=== PATIENT | male | born 1960 | race Caucasian/White ===

== ENCOUNTER 2018-06-05 16:39 | Emergency (ER) | payer OTHER ==
[~2018-06-05] VITALS: Ht 175.3 cm; Wt 117.5 kg
[2018-06-05] MEDS ORDERED: HTN PO (17:05)
[2018-06-05] MEDS ORDERED: ASPIRIN325 PO (17:06)
[2018-06-05] MEDS ORDERED: PERMETHRIN1 GM TOP (18:08)
[2018-06-05 18:31] VITALS: BP 153/116
== END 2018-06-05 18:32 | disposition home or self-care (01) ==
LOC: EDSEX 16:39 → M.ERS 16:39
DX: R21 Rash and other nonspecific skin eruption (principal); I10 Essential (primary) hypertension; F17.210 Nicotine dependence, cigarettes, uncomplicated

== ENCOUNTER 2021-08-20 09:27 | Inpatient (IN) | payer OTHER ==
[~2021-08-20] VITALS: Ht 175.3 cm; Wt 124.7 kg
[~2021-08-20 09:27] MED LIST: ASPIRIN325 PO; HTN PO; PERMETHRIN1 GM TOP
[2021-08-20 09:40] VITALS: BP 190/139
[2021-08-20 10:08] LABS: ABSOLUTE BASOPHILS 0.1 thou/uL (0.0-0.2); ABSOLUTE MONOCYTES 0.6 thou/uL (0.0-1.2); ABSOLUTE NEUTROPHILS 5.8 thou/uL (1.6-8.1); BASOPHILS 1.2 %; EOSINOPHILS 0.5 %; HEMOGLOBIN 14.3 gm/dL (14.0-18.0); LYMPHOCYTES 13.1 %; MCH 27.8 pg (26.0-34.0); MCHC 32.5 g/dL (28.0-37.0); MCV 85.5 fL (80.0-100.0); MONOCYTES 8.4 %; MPV 9.3 fl. (7.2-11.1); NUCLEATED RBCS 0 /100WBC; PLATELET COUNT* 322 thou/uL (150-400); POLYS 76.8 %; RBC 5.15 mil/uL (4.50-6.00); WBC 7.6 thou/uL (4.0-11.0)
[2021-08-20 10:30] LABS: CREATININE 1.7 mg/dL (0.6-1.3); POTASSIUM 4.1 mmol/L (3.5-5.1)
[2021-08-20 10:41] LABS: ALBUMIN 3.3 g/dL (3.4-5.0); TOTAL BILIRUBIN 0.6 mg/dL (<0.1-1.0); TOTAL PROTEIN 7.6 g/dL (6.4-8.2)
--- NOTE | 2021-08-20 15:56 | 2DMMODE ---
[place] [address] 2 D/M-MODE ECHOCARDIOGRAM Name: ESTRELLITA SHAW Room: [address] IN [place].#: [id number] Admission: 08/20/21 Attend Phys: Milena Powell, Discharge: Date of : 64 Date of Service: 08/20/21 1556 Report #: [id number] THIS REPORT FOR: cc: FAM - No family physician/PCP FAM - No family physician/PCP Roldan Siegel MD [facility] ~ APPROVED REPORT Study performed: 08/20/2021 14:59:06 EXAM: Comprehensive 2D, Doppler, and color-flow Echocardiogram Patient Location: In-Patient Room #: er Status: routine BSA: 2.37 HR: 114 bpm BP: 180/124 mmHg Rhythm: NSR Other Information Study Quality: Good Indications Congestive Heart Failure 2D Dimensions IVSd: 13.24 (7-11mm) LVOT Diam: 25.70 (18-24mm) LVDd: 60.95 mm PWd: 13.15 (7-11mm) Ascending Ao: 34.76 (22-36mm) LVDs: 56.45 (25-40mm) Aortic Root: 38.25 mm Volumes Left Atrial Volume (Systole) LA ESV Index: 42.40 mL/m2 Aortic Valve AoV Peak Romario.: 0.82 m/s AO Peak Gr.: 2.69 mmHg LVOT Max P.01 mmHg AO Mean Gr.: 1.71 mmHg LVOT Mean P.06 mmHg LVOT Max V: 0.71 m/s AO V2 VTI: 12.04 cm LVOT Mean V: 0.48 m/s MAMADOU (VTI): 4.08 cm2 LVOT V1 VTI: 9.45 [place] [address] 2 D/M-MODE ECHOCARDIOGRAM Name: ESTRELLITA SHAW Room: [address] IN [facility]#: [id number] Admission: 08/20/21 Attend Phys: Milena Powell, Discharge: Date of : 64 Date of Service: 08/20/21 1556 Report #: [id number] TDI Lateral E' Romario.: 0.12 m/s Pulmonary Valve PV Peak Romario.: 0.61 m/s PV Peak Gr.: 1.46 mmHg Tricuspid Valve RAP Estimate: 5.00 mmHg TR Peak Gr.: 37.93 mmHg RVSP: 42.00 mmHg PA Pressure: 42.00 mmHg Left Ventricle Left ventricle is moderately dilated. There is severe global hypokinesis of the left ventricle. There is normal left ventricular wall thickness. Left ventricular systolic function is severely decreased. LVEF is 20-25%. This study is not technically sufficient to allow evaluation of the LV diastolic function. Right Ventricle The right ventricle is normal size. The right ventricular systolic function is normal. Atria Left atrium is moderately dilated. The right atrium size is normal. Aortic Valve Mild aortic valve sclerosis. Trace aortic regurgitation. There is no aortic valvular stenosis. Mitral Valve The mitral valve is normal in structure. Trace mitral regurgitation. No evidence of mitral valve stenosis. Tricuspid Valve The tricuspid valve is normal in structure. Mild tricuspid regurgitation. Moderate pulmonary hypertension. Pulmonic Valve The pulmonary valve is normal in structure. Trace pulmonic regurgitation. Great Vessels The aortic root is normal in size. IVC is normal in size and collapses >50% [place] [address] 2 D/M-MODE ECHOCARDIOGRAM Name: ESTRELLITA SHAW Room: [address] IN [facility].#: [id number] Admission: 08/20/21 Attend Phys: Milena Powell, Discharge: Date of : 64 Date of Service: 08/20/21 1556 Report #: [id number] Pericardium There is no pericardial effusion. Left pleural effusion is noted. <Conclusion> Left ventricle is moderately dilated. There is normal left ventricular wall thickness. Left ventricular systolic function is severely decreased. LVEF is 20-25%. The right ventricle is normal size. Left atrium is moderately dilated. The right atrium size is normal. Mild aortic valve sclerosis. Trace aortic regurgitation. There is no aortic valvular stenosis. The mitral valve is normal in structure. Trace mitral regurgitation. The tricuspid valve is normal in structure. Mild tricuspid regurgitation. Moderate pulmonary hypertension. IVC is normal in size and collapses >50% with inspiration. There is no pericardial effusion. There is severe global hypokinesis of the left ventricle. Left pleural effusion is noted. <ELECTRONICALLY SIGNED> By: Roldan Siegel MD, [facility] 08/20/21 1556 1556 1556 Roldan Siegel MD, FACC /INF
[2021-08-20 16:45] LABS: CHOLESTEROL 189 mg/dL (<200); HDL CHOLESTEROL 28 mg/dL (>40); LDL CHOLESTEROL 133 mg/dL (<100); TC:HDL 6.8 Ratio (Not establshd); TRIGLYCERIDE 140 mg/dL (<150); VLDL 28 mg/dL (<40)
[2021-08-20 16:47] VITALS: BP 185/132
[2021-08-20 16:48] LABS: SERUM ASSESSMENT Clear
[2021-08-20 18:05] VITALS: BP 169/11
[2021-08-20 20:00] VITALS: BP 155/117
[2021-08-21] VITALS (7 sets, daily range): BP systolic 108–172; BP diastolic 76–109
[2021-08-21 08:15] LABS: HEMATOCRIT 43.1 % (42.0-52.0); HEMOGLOBIN 14.1 gm/dL (14.0-18.0); MCH 27.6 pg (26.0-34.0); MCHC 32.7 g/dL (28.0-37.0); MCV 84.4 fL (80.0-100.0); MPV 9.4 fl. (7.2-11.1); RBC 5.1 mil/uL (4.50-6.00); RDW-CV 15.4 % (10.5-14.5); WBC 8.2 thou/uL (4.0-11.0)
[2021-08-21 08:27] LABS: ALBUMIN 3.2 g/dL (3.4-5.0); CALCIUM 8.9 mg/dL (8.5-10.1); CREATININE 1.5 mg/dL (0.6-1.3); MAGNESIUM 2.1 mg/dL (1.8-2.4); POTASSIUM 4.1 mmol/L (3.5-5.1); TOTAL BILIRUBIN 0.6 mg/dL (<0.1-1.0); TOTAL PROTEIN 6.9 g/dL (6.4-8.2)
--- NOTE | 2021-08-21 15:16 | EKG ---
[place] [address] ELECTROCARDIOGRAM REPORT Name: ESTRELLITA SHAW Room: [place] [address] ADM IN ..#: [id number] Admission: 08/20/21 Attend Phys: Milena Powell, Discharge: Date of : 64 Date of Service: 08/20/21 0958 Report #: [id number] THIS REPORT FOR: //name// [facility] ED Test Date: 2021-08-20 Test Time: 09:58:24 Pat Name: ESTRELLITA SHAW Department: Room: [facility] Gender: M X Ray Nurse: FILOMENA : 1960 Requested By: Waylon Mckeon Order Number: [id number] MD: John Alvarez Measurements Intervals [place] Rate: 106 P: 27 [place]: 149 QRS: -6 QRSD: 112 T: 117 QT: 341 QTc: 453 Interpretive Statements Sinus tachycardia Biatrial enlargement inferior infarct, old Abnormal lateral Q waves Baseline wander in lead(s) V2 No previous ECG available for comparison Electronically Signed On 08-21-2021 15:16:44 MENTAL RETARDATION AIDE by John Alvarez [email or web address] <ELECTRONICALLY SIGNED> By: John Alvarez MD, FACC 08/21/21 1516 0958 0958 John Alvarez MD, FAC /EPI
[2021-08-22] VITALS: BP 136/90
[2021-08-22 04:00] VITALS: BP 129/89
[2021-08-22 08:00] VITALS: BP 134/93
[2021-08-22 10:11] LABS: HEMATOCRIT 44.9 % (42.0-52.0); HEMOGLOBIN 14.2 gm/dL (14.0-18.0); MCHC 31.7 g/dL (28.0-37.0); MCV 85.3 fL (80.0-100.0); MPV 9.4 fl. (7.2-11.1); RBC 5.27 mil/uL (4.50-6.00); RDW-CV 15.3 % (10.5-14.5); WBC 11.4 thou/uL (4.0-11.0)
[2021-08-22 10:21] LABS: CALCIUM 9.2 mg/dL (8.5-10.1); CREATININE 1.8 mg/dL (0.6-1.3); MAGNESIUM 2.2 mg/dL (1.8-2.4); POTASSIUM 4.1 mmol/L (3.5-5.1)
[2021-08-22 12:00] VITALS: BP 134/96
[2021-08-22 12:01] LABS: HEMATOCRIT 40.2 % (42.0-52.0); HEMOGLOBIN 12.9 gm/dL (14.0-18.0)
[2021-08-22 16:00] VITALS: BP 124/93
[2021-08-22 20:00] VITALS: BP 139/94
[2021-08-23] VITALS: BP 142/889
[2021-08-23 04:00] VITALS: BP 151/104
[2021-08-23 05:41] LABS: HEMATOCRIT 43.8 % (42.0-52.0); HEMOGLOBIN 14.1 gm/dL (14.0-18.0); MCH 27.2 pg (26.0-34.0); MCHC 32.1 g/dL (28.0-37.0); MCV 84.7 fL (80.0-100.0); MPV 9.2 fl. (7.2-11.1); RBC 5.17 mil/uL (4.50-6.00); RDW-CV 15.2 % (10.5-14.5); WBC 10.9 thou/uL (4.0-11.0)
[2021-08-23 06:09] LABS: ALBUMIN 3.1 g/dL (3.4-5.0); CALCIUM 8.7 mg/dL (8.5-10.1); CREATININE 1.9 mg/dL (0.6-1.3); MAGNESIUM 2.4 mg/dL (1.8-2.4); POTASSIUM 4.6 mmol/L (3.5-5.1); TOTAL BILIRUBIN 0.3 mg/dL (<0.1-1.0); TOTAL PROTEIN 6.7 g/dL (6.4-8.2)
[2021-08-23 09:00] VITALS: BP 138/100
[2021-08-23 09:24] LABS: APTT 25.4 Seconds (25.0-31.3); INR 1.1; PROTIME 11.5 Seconds (9.20-11.50)
[2021-08-23 11:48] VITALS: BP 146/102
[2021-08-23 15:45] LABS: BF RBC 6232 /mm3; TOTAL CELL COUNT 2139 /mm3
[2021-08-23 15:53] LABS: CLARITY CLOUDY; TOTAL VOLUME 1560 ml
[2021-08-23 16:08] LABS: BF LYMPHOCYTES 95 %; BF MONOCYTES 2 %; BF POLYS 3 %; BF TISSUE 5 /100 WBC
[2021-08-23 16:14] LABS: SOURCE PLEURAL FLUID
[2021-08-23 16:49] VITALS: BP 144/83
[2021-08-23 20:00] VITALS: BP 146/81
[2021-08-24 02:22] VITALS: BP 120/88
[2021-08-24 04:30] LABS: HEMATOCRIT 44.1 % (42.0-52.0); HEMOGLOBIN 14.2 gm/dL (14.0-18.0); MCH 27.3 pg (26.0-34.0); MCHC 32.2 g/dL (28.0-37.0); MCV 84.8 fL (80.0-100.0); MPV 9.2 fl. (7.2-11.1); RBC 5.21 mil/uL (4.50-6.00); RDW-CV 15.2 % (10.5-14.5); WBC 10.9 thou/uL (4.0-11.0)
[2021-08-24 05:26] LABS: ALBUMIN 2.8 g/dL (3.4-5.0); CALCIUM 8.6 mg/dL (8.5-10.1); MAGNESIUM 2.2 mg/dL (1.8-2.4); POTASSIUM 4.6 mmol/L (3.5-5.1); TOTAL BILIRUBIN 0.3 mg/dL (<0.1-1.0); TOTAL PROTEIN 6.4 g/dL (6.4-8.2)
[2021-08-24 07:03] VITALS: BP 128/72
[2021-08-24 08:39] VITALS: BP 139/103
[2021-08-24] MEDS ORDERED: CARVEDILOL25 MG PO (09:35)
[2021-08-24] MEDS ORDERED: SPIRONOLACTONE25 MG PO (09:35)
[2021-08-24] MEDS ORDERED: COZAAR100 MG PO (09:35)
[2021-08-24] MEDS ORDERED: K-DUR10 MEQ PO (09:35)
[2021-08-24] MEDS ORDERED: LASIX 40 MG TAB40 M1 PO (09:35)
[2021-08-24] MEDS ORDERED: LIPITOR40 MG PO (09:35)
[2021-08-24 12:05] VITALS: BP 138/94
[2021-08-24 17:42] VITALS: BP 146/81
[2021-08-24 21:00] VITALS: BP 117/76
[2021-08-25 01:04] VITALS: BP 119/68
[2021-08-25 04:36] LABS: HEMATOCRIT 44.5 % (42.0-52.0); HEMOGLOBIN 14.4 gm/dL (14.0-18.0); MCH 27.4 pg (26.0-34.0); MCHC 32.4 g/dL (28.0-37.0); MCV 84.4 fL (80.0-100.0); MPV 9.3 fl. (7.2-11.1); RBC 5.28 mil/uL (4.50-6.00); RDW-CV 14.9 % (10.5-14.5)
[2021-08-25 04:42] LABS: CALCIUM 8.5 mg/dL (8.5-10.1); CREATININE 1.8 mg/dL (0.6-1.3); POTASSIUM 4.4 mmol/L (3.5-5.1)
[2021-08-25 05:27] VITALS: BP 136/82
[2021-08-25 08:16] VITALS: BP 113/66
[2021-08-25] MEDS ORDERED: CEFDINIR300 MG PO (08:58)
[2021-08-25] MEDS ORDERED: PREDNISONE 10 M10 M1 PO (08:58)
[2021-08-25 11:37] VITALS: BP 113/66
--- NOTE | 2021-08-25 14:07 | PATH ---
[address] [address] PATHOLOGY RPT PROCEDURE Name: ESTRELLITA SHAW Room: [place] [address] ADM IN .R.#: [id number] Admission: 08/20/21 Date of : 64 Discharge: Report #: [id number] Path Case #: [id number] Note [facility] Accession Number: [id number] TESTS RESULT FLAG UNITS REF RANGE LAB Clinician Provided Cytology Information No. of containers..01 Other (Miscellaneous) Source: PLEURAL LEFT DIAGNOSIS: PLEURAL LEFT NEGATIVE FOR MALIGNANT CELLS. REACTIVE MESOTHELIAL CELLS AND FEW, PREDOMINANTLY CHRONIC INFLAMMATORY CELLS ARE PRESENT. THIS INTERPRETATION INCLUDES EVALUATION OF A CELL BLOCK. Signed out by: 02 Pradip Coleman MD, Pathologist NPI- [id number] Performed by: 01 Mary Ellen Tobar, Bull Ladle Tender ([facility]) Gross description: 01 50ML, ORANGE, CLOUDY /LCS 08/24/2021 1241 Local FLAG LEGEND: L-Low Normal,H-High Normal,LL-Alert Low,HH-Alert High <-Panic Low,>-Panic High,A-Abnormal,AA-Critical Abnormal Performed at: [address] [place] [address] Guzman Camacho MD, [address] [place] [address] [address] [facility], [place] [address] Pradip Coleman MD, Specimen Comment: A courtesy copy of this report has been sent to [phone] Specimen Comment: Report sent to Specimen Comment: A duplicate report has been generated due to demographic updates. Performed at: [address], [place], [place] [id number] MD Guzman Camacho MD Phone: [phone]
== END 2021-08-25 16:50 | disposition home or self-care (01) | DRG 177 ==
LOC: M.ERS 09:27 → M.TBA-ER 12:29 → M.2W 17:01
PROVIDERS: Family Medicine; Registered Nurse; ADMIT Internal Medicine; ATTEND Internal Medicine
PROC: 0W9B3ZZ Drainage of Left Pleural Cavity, Percutaneous Approach (ICD-10-PCS; principal; 2021-08-23)
DX: J15.6 Pneumonia due to other Gram-negative bacteria (principal); J96.01 Acute respiratory failure with hypoxia; I50.41 Acute combined systolic (congestive) and diastolic (congestive) heart failure; J91.8 Pleural effusion in other conditions classified elsewhere; R65.10 Systemic inflammatory response syndrome (SIRS) of non-infectious origin without acute organ dysfunction; N17.9 Acute kidney failure, unspecified; I42.9 Cardiomyopathy, unspecified; F17.210 Nicotine dependence, cigarettes, uncomplicated; I16.0 Hypertensive urgency; I11.0 Hypertensive heart disease with heart failure; E78.5 Hyperlipidemia, unspecified; I25.10 Atherosclerotic heart disease of native coronary artery without angina pectoris; Z79.82 Long term (current) use of aspirin; I25.2 Old myocardial infarction; Z95.5 Presence of coronary angioplasty implant and graft; Z79.899 Other long term (current) drug therapy